=== PATIENT | female | born 1990 | race Caucasian/White ===

== ENCOUNTER → 2023-08-06 12:37 | Outpatient (REF) | payer OTHER, SELFPAY | LOC: HWRAD 12:37 | PROVIDERS: ATTENDING PHYSICIAN Nurse Practitioner Obstetrics & Gynecology; FAMILY PHYSICIAN Nurse Practitioner | DX: R10.2 Pelvic and perineal pain (principal) | CPT/HCPCS: 76830; 76856 ==

== ENCOUNTER → 2024-06-01 07:37 | Outpatient (REF) | payer OTHER, SELFPAY | LOC: RCS 07:37 | PROVIDERS: ATTENDING PHYSICIAN Nurse Practitioner Gerontology; FAMILY PHYSICIAN Nurse Practitioner | DX: R06.02 Shortness of breath (principal); R42 Dizziness and giddiness; R55 Syncope and collapse | CPT/HCPCS: 93017 ==

== ENCOUNTER → 2024-06-07 14:55 | Outpatient (REF) | payer OTHER, SELFPAY | LOC: HWRCS 14:55 | PROVIDERS: ATTENDING PHYSICIAN Nurse Practitioner Gerontology; FAMILY PHYSICIAN Nurse Practitioner | DX: R06.02 Shortness of breath (principal); R42 Dizziness and giddiness | CPT/HCPCS: 93306 ==

== ENCOUNTER → 2024-09-27 07:11 | Outpatient (REF) | payer OTHER, SELFPAY | LOC: HWRAD 07:11 | PROVIDERS: ATTENDING PHYSICIAN Nurse Practitioner Family | DX: R19.05 Periumbilic swelling, mass or lump (principal) | CPT/HCPCS: 76700 ==